=== PATIENT | female | born 1980 | race Two or more races ===

== ENCOUNTER 2020-02-26 09:33 | Emergency (ER) | payer BC ==
[~2020-02-26] VITALS: Ht 160 cm; Wt 50.6 kg
[2020-02-26 09:37] VITALS: BP 140/99
--- NOTE | 2020-02-26 09:59 | NUR ---
PT BROUGHT BACK FROM TRIAGE WITH CHIEF COMPLAINT OF RIGHT EAR PAIN AND TEMP. SEEN AT URGENT CARE AND PRESCRIBED MEDS.
--- NOTE | 2020-02-26 10:01 | NUR ---
DISCHARGE INSTRUCTIONS REVIEWED
== END 2020-02-26 10:28 | disposition home or self-care (01) ==
LOC: ED 10:19
DX: H69.81 Other specified disorders of Eustachian tube, right ear (principal); H65.91 Unspecified nonsuppurative otitis media, right ear; R50.9 Fever, unspecified
CPT/HCPCS: 99281

== ENCOUNTER 2020-04-19 14:55 | Emergency (ER) | payer MEDICAID ==
[~2020-04-19] VITALS: Ht 160 cm; Wt 53.6 kg
[2020-04-19 14:56] VITALS: BP 170/102
[2020-04-19] MEDS ORDERED: SODIUM CHLORIDE 0.9% 1,000ML IVBOLUS ONE (15:30)
[2020-04-19] MEDS ORDERED: KETOROLAC 30 MG/1 ML IVPush ONE (15:30)
[2020-04-19] MEDS ORDERED: DIPHENHYDRAMINE 50 MG/ML, 1ML IVPush ONE (15:30)
[2020-04-19] MEDS ORDERED: METOCLOPRAMIDE 5 MG/ML, 2ML IVPush ONE (15:30)
[2020-04-19] MEDS ORDERED: KETOROLAC 30 MG/1 ML ONE (15:43)
[2020-04-19] MEDS ORDERED: DIPHENHYDRAMINE 50 MG/ML, 1ML ONE (15:43)
[2020-04-19] MEDS ORDERED: METOCLOPRAMIDE 5 MG/ML, 2ML ONE (15:43)
--- NOTE | 2020-04-19 16:33 | NUR ---
pt medicated, requested toradol im because it gives her too much anxiety iv, ok'd by naomi estrada. ivf infusing
== END 2020-04-19 17:39 | disposition home or self-care (01) ==
LOC: ED 16:12
DX: G43.109 Migraine with aura, not intractable, without status migrainosus (principal); H53.149 Visual discomfort, unspecified; R11.2 Nausea with vomiting, unspecified; I25.2 Old myocardial infarction
CPT/HCPCS: 96361; 96374; 96375; 99284; J1200; J1885; J2765; J7030